=== PATIENT | female | born 1945 | race Caucasian/White ===

== ENCOUNTER 2020-07-30 16:23 | Outpatient (REF) | payer MEDICARE, SELFPAY ==
[2020-07-30 16:57] LABS: Glucose Urine UA NEG (NEG); Leukocyte Esterase Urine 2+ (NEG); Nitrite Urine NEG (NEG); Urine Blood NEG (NEG); Urine Ketones NEG (NEG); Urine Protein NEG (NEG-TRACE)
[2020-07-30 17:00] LABS: Appearance Urine CLEAR; Color Urine YELLOW
[2020-07-30 17:35] LABS: Bacteria Urine TRACE /LPF; Mucus Urine 1+ /LPF; RBC Urine 0 /HPF (0); Squamous Epithelial Cell Urine 2+ /LPF
== END 2020-07-30 16:24 | disposition home or self-care (01) ==
LOC: HO.LNP 16:23
PROVIDERS: Visit Provider Internal Medicine
DX: N30.90 Cystitis, unspecified without hematuria (principal)
CPT/HCPCS: 81001; 81003; 87086

== ENCOUNTER 2020-08-06 10:59 | Outpatient (REF) | payer MEDICARE, SELFPAY ==
[2020-08-06 11:34] LABS: Estimated Average Glucose 160 mg/dL; Hemoglobin A1c % 7.2 %
[2020-08-06 13:28] LABS: Cholesterol 257 mg/dL; Glucose Fasting 129 mg/dL (60-99); HDL Cholesterol 42 mg/dL; LDL Cholesterol Calculated 189 mg/dl; Triglycerides 130 mg/dL
[2020-08-06 13:58] LABS: Reflex LDLD? No
== END 2020-08-06 11:00 | disposition home or self-care (01) ==
LOC: HO.LNP 10:59
PROVIDERS: Visit Provider Internal Medicine
DX: E11.9 Type 2 diabetes mellitus without complications (principal); E78.00 Pure hypercholesterolemia, unspecified
CPT/HCPCS: 80061; 82947; 83036

== ENCOUNTER 2020-08-13 13:49 | Outpatient (REF) | payer MEDICARE, SELFPAY ==
[2020-08-13 14:11] LABS: Glucose Urine UA NEG (NEG); Leukocyte Esterase Urine 2+ (NEG); Nitrite Urine NEG (NEG); PH 6.5 (5.0-8.0); Specific Gravity - Urine <= 1.005 (1.005-1.025); Urine Blood NEG (NEG); Urine Ketones NEG (NEG); Urine Protein NEG (NEG-TRACE)
[2020-08-13 14:20] LABS: Appearance Urine HAZY; Color Urine YELLOW
[2020-08-13 14:35] LABS: Bacteria Urine TRACE /LPF; RBC Urine 0 /HPF (0); Squamous Epithelial Cell Urine 1+ /LPF
== END 2020-08-13 13:50 | disposition home or self-care (01) ==
LOC: HO.LNP 13:49
PROVIDERS: Visit Provider Internal Medicine
DX: Z87.440 Personal history of urinary (tract) infections (principal)
CPT/HCPCS: 81001; 87086

== ENCOUNTER 2021-04-29 10:29 | Outpatient (REF) | payer MEDICARE, SELFPAY ==
[2021-04-29 10:32] LABS: MANUAL DIFF FLAG NO
[2021-04-29 10:49] LABS: Basophils Percent Auto 0.4 % (0-2); Eosinophils Absolute Auto 0.2 X10*3/uL (0.0-0.4); Eosinophils Percent Auto 1.7 % (0-4); Hematocrit 40.1 % (37.0-47.0); Hemoglobin 12.8 g/dl (12.0-16.0); Imm Gran Abs Auto 0.03 X10*3/uL (0.00-0.03); Imm Gran Pct Auto 0.3 % (0.0-0.4); Lymphocytes Absolute Auto 2.4 X10*3/uL (1.2-4.9); Lymphocytes Percent Auto 25.7 % (20-40); Mean Corpuscular HGB Conc 31.9 g/dl (31.0-35.0); Mean Corpuscular Hemoglobin 29.5 pg (27.0-33.0); Mean Corpuscular Volume 92.4 fL (80.0-98.0); Monocytes Absolute Auto 0.8 X10*3/uL (0.1-1.2); Monocytes Percent Auto 8.8 % (2-11); Neutrophils Absolute Auto 5.8 x10*3/uL (2.0-8.3); Neutrophils Percent Auto 63.1 % (45-73); Platelet Count 301 X10*3/uL (160-400); Red Blood Count 4.34 X10*6/uL (4.20-5.50); White Blood Count 9.2 X10*3/uL (4.8-10.8)
[2021-04-29 10:52] LABS: Appearance Urine HAZY; Color Urine STRAW; Glucose Urine UA NEG (NEG); Leukocyte Esterase Urine TRACE (NEG); Nitrite Urine NEG (NEG); Urine Blood TRACE (NEG); Urine Ketones NEG (NEG); Urine Protein NEG (NEG-TRACE)
[2021-04-29 10:59] LABS: Estimated Average Glucose 163 mg/dL; Hemoglobin A1c % 7.3 %
[2021-04-29 11:04] LABS: Alanine Aminotransferase 10 U/L (0-31); Albumin Level 3.9 g/dL (3.5-5.0); Alkaline Phosphatase 94 U/L (39-117); Anion Gap 13 (12-20); Aspartate Amino Transferase 13 U/L (5-31); Bilirubin Total 0.5 mg/dL (0.0-1.0); Blood Urea Nitrogen 14 mg/dL (9-16); Calcium 9.5 mg/dL (8.4-10.2); Carbon Dioxide 28 mmol/L (22-29); Chloride 102 mmol/L (96-108); Cholesterol 261 mg/dL; Estimated Glomerular Filt Rate > 60; Glucose Fasting 123 mg/dL (60-99); HDL Cholesterol 42 mg/dL; LDL Cholesterol Calculated 190 mg/dl; Potassium 4.2 mmol/L (3.3-5.1); Sodium 139 mmol/L (135-145); Total Protein 7.3 g/dL (6.5-8.0); Triglycerides 148 mg/dL
[2021-04-29 11:06] LABS: Bacteria Urine TRACE /LPF; Squamous Epithelial Cell Urine 3+ /LPF; Urine Talc Crystals TRACE /LPF
[2021-04-29 11:22] LABS: Creatinine Urine 55.53 mg/dL
[2021-04-29 11:25] LABS: TSH reflex Free T4 6.56 uIU/mL (0.32-4.0); Vitamin D 25-OH Total 19.4 ng/mL (>30)
[2021-04-29 13:31] LABS: Free T4 (Free Thyroxine) 0.93 ng/dL (0.71-1.85)
== END 2021-04-29 10:30 | disposition home or self-care (01) ==
LOC: HO.LNP 10:29
PROVIDERS: Visit Provider Internal Medicine
DX: Z00.00 Encounter for general adult medical examination without abnormal findings (principal); E03.9 Hypothyroidism, unspecified; E11.9 Type 2 diabetes mellitus without complications; E78.00 Pure hypercholesterolemia, unspecified; E55.9 Vitamin D deficiency, unspecified
CPT/HCPCS: 80053; 80061; 81001; 82043; 82306; 83036; 84439; 84443; 85025

== ENCOUNTER 2021-11-06 14:34 | Outpatient (REF) | payer MEDICARE, SELFPAY ==
[2021-11-06 15:01] LABS: Glucose Fasting 134 mg/dL (60-99)
[2021-11-06 15:03] LABS: Estimated Average Glucose 151 mg/dL; Hemoglobin A1c % 6.9 %
[2021-11-06 15:28] LABS: Thyroid Stimulating Hormone 3.12 uIU/mL (0.32-4.0)
== END 2021-11-06 14:35 | disposition home or self-care (01) ==
LOC: HO.LNP 14:34
PROVIDERS: Visit Provider Internal Medicine
DX: Z13.89 Encounter for screening for other disorder (principal)
CPT/HCPCS: 82947; 83036; 84443

== ENCOUNTER 2022-05-05 10:59 | Outpatient (REF) | payer MEDICARE, SELFPAY ==
[2022-05-05 11:04] LABS: MANUAL DIFF FLAG NO
[2022-05-05 11:50] LABS: Basophils Absolute Auto 0.1 X10*3/uL (0.0-0.2); Basophils Percent Auto 0.9 % (0-2); Eosinophils Absolute Auto 0.3 X10*3/uL (0.0-0.4); Eosinophils Percent Auto 3.4 % (0-4); Hematocrit 42.9 % (37.0-47.0); Hemoglobin 13.7 g/dl (12.0-16.0); Imm Gran Abs Auto 0.02 X10*3/uL (0.00-0.03); Imm Gran Pct Auto 0.3 % (0.0-0.4); Lymphocytes Absolute Auto 2.7 X10*3/uL (1.2-4.9); Lymphocytes Percent Auto 34.3 % (20-40); Mean Corpuscular HGB Conc 31.9 g/dl (31.0-35.0); Mean Corpuscular Volume 87.7 fL (80.0-98.0); Monocytes Absolute Auto 0.7 X10*3/uL (0.1-1.2); Neutrophils Absolute Auto 4.1 x10*3/uL (2.0-8.3); Neutrophils Percent Auto 52.1 % (45-73); Platelet Count 346 X10*3/uL (160-400); Red Blood Count 4.89 X10*6/uL (4.20-5.50); Red Cell Distribution Width 13.6 % (11.0-16.0); White Blood Count 7.9 X10*3/uL (4.8-10.8)
[2022-05-05 11:53] LABS: Appearance Urine Cloudy; Color Urine Yellow; Glucose Urine UA Negative (Negative); Leukocyte Esterase Urine Large (3+) (Negative); Nitrite Urine Negative (Negative); Specific Gravity - Urine 1.015 (1.005-1.025); UMIC TRIGGER UACC YES; Urine Blood Trace (Negative); Urine Ketones Negative (Negative); Urine Protein Negative (Neg-Trace)
[2022-05-05 11:57] LABS: Bacteria Urine 4+ (None Seen); Hyaline Casts Urine 0-2 /LPF (0-2); Squamous Epithelial Cell Urine >20 /HPF (0-2); UACC Culture Trigger YES
[2022-05-05 12:06] LABS: Estimated Average Glucose 157 mg/dL; Hemoglobin A1c % 7.1 %
[2022-05-05 12:39] LABS: Creatinine Urine 101.76 mg/dL; Microalbum/Creatinine Ratio Ur 6.8 ug/mg cr
[2022-05-05 12:56] LABS: Alanine Aminotransferase 15 U/L (0-31); Alkaline Phosphatase 101 U/L (39-117); Anion Gap 12 (12-20); Aspartate Amino Transferase 17 U/L (5-31); Bilirubin Total 0.7 mg/dL (0.0-1.0); Blood Urea Nitrogen 13 mg/dL (9-16); Calcium 9.2 mg/dL (8.4-10.2); Carbon Dioxide 30 mmol/L (22-29); Chloride 106 mmol/L (96-108); Cholesterol 283 mg/dL; Estimated Glomerular Filt Rate > 60; Glucose Fasting 136 mg/dL (60-99); HDL Cholesterol 45 mg/dL; LDL Cholesterol Calculated 213 mg/dl; Potassium 4.9 mmol/L (3.3-5.1); Sodium 143 mmol/L (135-145); Total Protein 7.3 g/dL (6.5-8.0); Triglycerides 128 mg/dL
[2022-05-05 12:58] LABS: TSH reflex Free T4 3.63 uIU/mL (0.32-4.0); Vitamin D 25-OH Total 27.8 ng/mL (>30)
== END 2022-05-05 11:00 | disposition home or self-care (01) ==
LOC: HO.LNP 10:59
PROVIDERS: Visit Provider Internal Medicine
DX: Z00.00 Encounter for general adult medical examination without abnormal findings (principal); E03.9 Hypothyroidism, unspecified; E11.9 Type 2 diabetes mellitus without complications; E78.00 Pure hypercholesterolemia, unspecified; E55.9 Vitamin D deficiency, unspecified; R82.90 Unspecified abnormal findings in urine
CPT/HCPCS: 80053; 80061; 81001; 82043; 82306; 83036; 84443; 85025; 87086

== ENCOUNTER 2022-05-11 15:50 | Outpatient (REF) | payer MEDICARE, SELFPAY ==
[2022-05-11 16:04] LABS: Appearance Urine Cloudy; Color Urine Yellow; Glucose Urine UA Negative (Negative); Leukocyte Esterase Urine Large (3+) (Negative); Nitrite Urine Negative (Negative); PH 5.5 (5.0-9.0); Specific Gravity - Urine 1.015 (1.005-1.025); UMIC TRIGGER UA YES; Urine Blood Trace (Negative); Urine Ketones Negative (Negative); Urine Protein Negative (Neg-Trace)
[2022-05-11 16:09] LABS: Bacteria Urine 2+ (None Seen); WBC Urine 21-50 /HPF (0-5)
== END 2022-05-11 15:51 | disposition home or self-care (01) ==
LOC: HO.LNP 15:50
PROVIDERS: Visit Provider Internal Medicine
DX: R31.9 Hematuria, unspecified (principal)
CPT/HCPCS: 81001; 87086

== ENCOUNTER 2022-05-15 11:14 | Outpatient (REF) | payer MEDICARE, SELFPAY ==
[2022-05-15 11:38] LABS: Appearance Urine Cloudy; Color Urine Yellow; Glucose Urine UA Negative (Negative); Leukocyte Esterase Urine Large (3+) (Negative); Nitrite Urine Negative (Negative); PH 6.5 (5.0-9.0); Specific Gravity - Urine 1.015 (1.005-1.025); UMIC TRIGGER UACC YES; Urine Blood Negative (Negative); Urine Ketones Negative (Negative); Urine Protein Negative (Neg-Trace)
[2022-05-15 11:43] LABS: Bacteria Urine 1+ (None Seen); Hyaline Casts Urine 0-2 /LPF (0-2); RBC Urine 0-2 /HPF (0-2); UACC Culture Trigger YES
== END 2022-05-15 11:15 | disposition home or self-care (01) ==
LOC: HO.LNP 11:14
PROVIDERS: Visit Provider Internal Medicine
DX: N39.0 Urinary tract infection, site not specified (principal)
CPT/HCPCS: 81001; 87086

== ENCOUNTER 2023-05-04 11:20 | Outpatient (REF) | payer MEDICARE, SELFPAY ==
[2023-05-04 11:29] LABS: MANUAL DIFF FLAG NO
[2023-05-04 11:59] LABS: Basophils Absolute Auto 0.1 X10*3/uL (0.0-0.2); Basophils Percent Auto 0.8 % (0-2); Eosinophils Absolute Auto 0.3 X10*3/uL (0.0-0.4); Eosinophils Percent Auto 4.1 % (0-4); Hematocrit 41.2 % (37.0-47.0); Hemoglobin 13.3 g/dl (12.0-16.0); Imm Gran Abs Auto 0.03 X10*3/uL (0.00-0.03); Imm Gran Pct Auto 0.5 % (0.0-0.4); Lymphocytes Absolute Auto 2.2 X10*3/uL (1.2-4.9); Lymphocytes Percent Auto 35.8 % (20-40); Mean Corpuscular HGB Conc 32.3 g/dl (31.0-35.0); Mean Corpuscular Hemoglobin 28.7 pg (27.0-33.0); Mean Corpuscular Volume 88.8 fL (80.0-98.0); Monocytes Absolute Auto 0.6 X10*3/uL (0.1-1.2); Monocytes Percent Auto 9.1 % (2-11); Neutrophils Absolute Auto 3.1 x10*3/uL (2.0-8.3); Neutrophils Percent Auto 49.7 % (45-73); Platelet Count 306 X10*3/uL (160-400); Red Blood Count 4.64 X10*6/uL (4.20-5.50); Red Cell Distribution Width 14.3 % (11.0-16.0); White Blood Count 6.2 X10*3/uL (4.8-10.8)
[2023-05-04 12:02] LABS: Estimated Average Glucose 143 mg/dL; Hemoglobin A1c % 6.6 % (<6.0)
[2023-05-04 12:07] LABS: Appearance Urine Turbid; Color Urine Yellow; Glucose Urine UA Negative (Negative); Leukocyte Esterase Urine Large (3+) (Negative); Nitrite Urine Negative (Negative); PH 7.5 (5.0-9.0); Specific Gravity - Urine 1.015 (1.005-1.025); UMIC TRIGGER UACC YES; Urine Blood Trace (Negative); Urine Ketones Negative (Negative); Urine Protein Negative (Neg-Trace)
[2023-05-04 12:15] LABS: Alanine Aminotransferase 12 U/L (0-31); Albumin Level 3.9 g/dL (3.5-5.0); Alkaline Phosphatase 86 U/L (39-117); Anion Gap 11 (12-20); Aspartate Amino Transferase 17 U/L (5-31); Bilirubin Total 0.7 mg/dL (0.0-1.0); Blood Urea Nitrogen 14 mg/dL (9-16); Calcium 9.9 mg/dL (8.4-10.2); Carbon Dioxide 29 mmol/L (22-29); Chloride 104 mmol/L (96-108); Cholesterol 266 mg/dL (<200); Estimated Glomerular Filt Rate > 60; Glucose Fasting 125 mg/dL (60-99); HDL Cholesterol 44 mg/dL (>40); LDL Cholesterol Calculated 191 mg/dL (<100); Sodium 140 mmol/L (135-145); Total Protein 7.8 g/dL (6.5-8.0); Triglycerides 158 mg/dL (<150)
[2023-05-04 12:25] LABS: TSH reflex Free T4 1.84 uIU/mL (0.32-4.0); Vitamin D 25-OH Total 40.8 ng/mL (>30)
[2023-05-04 12:44] LABS: Creatinine Urine 76.51 mg/dL; Microalbum/Creatinine Ratio Ur 44.4 ug/mg cr (<30)
[2023-05-04 12:50] LABS: Bacteria Urine 1+ (None Seen); Hyaline Casts Urine 0-2 /LPF (0-2); Other Crystals Urine Present; Squamous Epithelial Cell Urine >20 /HPF (0-2); UACC Culture Trigger YES
== END 2023-05-04 11:21 | disposition home or self-care (01) ==
LOC: HO.LNP 11:20
PROVIDERS: Visit Provider Internal Medicine
DX: Z00.00 Encounter for general adult medical examination without abnormal findings (principal); E03.9 Hypothyroidism, unspecified; E11.9 Type 2 diabetes mellitus without complications; E78.00 Pure hypercholesterolemia, unspecified; E55.9 Vitamin D deficiency, unspecified; R82.90 Unspecified abnormal findings in urine
CPT/HCPCS: 80053; 80061; 81001; 82043; 82306; 82570; 83036; 84443; 85025; 87086

== ENCOUNTER 2023-11-05 11:36 | Outpatient (REF) | payer MEDICARE, SELFPAY ==
--- NOTE | ~2023-11-05 | XR_ITS ---
EXAMINATION: XR CERVICAL SPINE CLINICAL INFORMATION: Cervical neck pain COMPARISON: None available. TECHNIQUE: 4 views of the cervical spine were obtained. FINDINGS: C7 is not well evaluated on this exam. The cervical spine maintains normal alignment. Vertebral body heights are maintained. There is multilevel loss of intervertebral disc space with endplate degenerative changes. There are multiple large anterior osteophytes at C4-C5 and C5-C6. The paravertebral soft tissues are unremarkable. 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 Electronically signed by: Sue Guaman MD 11/06/2023 03:46 PM EDT
== END 2023-11-05 11:37 | disposition home or self-care (01) ==
LOC: HO.XRAY 11:36
PROVIDERS: PCP Internal Medicine; Visit Provider Internal Medicine
DX: M54.2 Cervicalgia (principal)
CPT/HCPCS: 72040

== ENCOUNTER 2024-05-08 10:23 | Outpatient (REF) | payer MEDICARE, SELFPAY ==
[2024-05-08 10:25] LABS: MANUAL DIFF FLAG NO
[2024-05-08 10:54] LABS: Basophils Absolute Auto 0.1 X10*3/uL (0.0-0.2); Basophils Percent Auto 1.1 % (0-2); Eosinophils Absolute Auto 0.3 X10*3/uL (0.0-0.4); Eosinophils Percent Auto 4.1 % (0-4); Hematocrit 41.2 % (37.0-47.0); Hemoglobin 13.2 g/dl (12.0-16.0); Imm Gran Abs Auto 0.02 X10*3/uL (0.00-0.03); Imm Gran Pct Auto 0.3 % (0.0-0.4); Lymphocytes Absolute Auto 2.4 X10*3/uL (1.2-4.9); Lymphocytes Percent Auto 36.5 % (20-40); Mean Corpuscular Hemoglobin 28.8 pg (27.0-33.0); Mean Platelet Volume 9.7 fL (9.4-12.3); Monocytes Absolute Auto 0.6 X10*3/uL (0.1-1.2); Monocytes Percent Auto 9.5 % (2-11); Neutrophils Absolute Auto 3.2 x10*3/uL (2.0-8.3); Neutrophils Percent Auto 48.5 % (45-73); Platelet Count 319 X10*3/uL (160-400); Red Blood Count 4.58 X10*6/uL (4.20-5.50); Red Cell Distribution Width 14.2 % (11.0-16.0); White Blood Count 6.6 X10*3/uL (4.8-10.8)
--- OUTSIDE RECORDS SUMMARY | 2024-05-08 11:43 | XMS_ITS ---
Author Organization Farhan Harding MD Address [address] [place], [place] [id number] Care Team Providers Care Reed Or Wind Instrument Repairer Name Role Phone Farhan Harding Primary Care Provider [phone] Results Component Value Reference Range Notes Complete Blood Count Auto Di ff (Not yet reviewed by provider) Interpretation: Performing Lab:[facility], [address] [place] [address] Notes/Report: White Blood Count 6.6 4.8-10.8 X10*3/uL Red Blood Count 4.58 4.20-5.50 X10*6/uL Hemoglobin 13.2 12.0-16.0 g/dl Hematocrit 41.2 37.0-47.0 % Mean Corpuscular Volume 90.0 80.0-98.0 fL Mean Corpuscular Hemoglobin 28.8 27.0-33.0 pg Mean Corpuscular HGB Conc 32.0 31.0-35.0 g/dl Red Cell Distribution Width 14.2 11.0-16.0 % Platelet Count 319 160-400 X10*3/uL Mean Platelet Volume 9.7 9.4-12.3 fL Neutrophils Percent Auto 48.5 45-73 % Imm Gran Pct Auto 0.3 0.0-0.4 % Lymphocytes Percent Auto 36.5 20-40 % Monocytes Percent Auto 9.5 2-11 % Eosinophils Percent Auto 4.1 0-4 % Basophils Percent Auto 1.1 0-2 % NRBC Pct Auto 0.0 0.0-0.2 /100WBC Neutrophils Absolute Auto 3.2 2.0-8.3 x10*3/u L Imm Gran Abs Auto 0.02 0.00-0.03 X10*3/uL Lymphocytes Absolute Auto 2.4 1.2-4.9 X10*3/u L Monocytes Absolute Auto 0.6 0.1-1.2 X10*3/uL Eosinophils Absolute Auto 0.3 0.0-0.4 X10*3/u L Basophils Absolute Auto 0.1 0.0-0.2 X10*3/uL NRBC Abs Auto 0.000 0.0-0.012 X10*3/uL REASON FOR VISIT yearly fasting labs Encounters Encounter Location Date Provider Diagnosis Farhan Harding MD [address] [place] [address] Drive [address] [place], [place] [phone] 05/08/2024 Farhan Harding Blood tests for rout ine general physical examination Z00.00 ; Acquired hypothyroidism E03.9 ; Pure hypercholesterolemia E78.00 and Vitamin D deficiency E55.9 Assessments Encounter Date Diagnosis (ICD Code) Assessment Notes Treatment Notes Treatment Clinical Notes Section Notes 05/08/2024 [address] tests for rout ine general physical examination (ICD-10 - Z00.00) 05/08/2024 Acquired hypothyroid ism (ICD-10 - E03.9) 05/08/2024 Pure hypercholesterolemia (ICD-10 - E78.00) 05/08/2024 Vitamin D deficiency (ICD-10 - E55.9) Plan Of Treatment Pending Test Test Name Order Date Complete Blood Count Auto Diff Comprehensive Rapelje. Panel Fast Lipid Panel 05/08/2024 Vitamin D 25-OH Total 05/08/2024 TSH reflex Free T4 05/08/2024 UA ClnCatch+Micro w/rflx Cult 05/08/2024 Next Appt Details Provider Name:Farhan menendez, 05/15/2024 09:30:00 AM, [address], [address], [place], [place], [id number], Progress Notes * Ayush JEROMEOB:1945 (78 yo F)Acc No.[id number]:05/08/2024 Progress Note Patient:?Pallavi JEROME Provider:?Farhan Harding MD :1945???Age:78 Y???Sex:Female D ate:05/08/2024 Address:[address] [place] [address] Subjective: * Chief Complaints: * ???1. Yearly fasting labs. * Medical History:? Objective: * Vitals:? Assessment: * Assessment: 1.?Blood tests for routine g eneral physical examination - Z00.00???2.?Acquired hypothyroidism - E03.9???3.?Pure hypercholesterolemia - E78.00???4.?Vitamin D deficiency - E55.9??? Plan: * Treatment: 2.?Acquired hypothyroidism?LAB: Complete Blood Count Auto Diff (Collection Date & Time - 05/08/2024 07:00 AM) ?LAB: Comprehensive Rapelje. Panel Fast ?LAB: Lipid Panel ?LAB: Vitamin D 25-OH Total ?LAB: TSH reflex Free T4 ?LAB: UA ClnCatch+Micro w/rflx Cult 3.?Pure hypercholesterolemia ?LAB: Complete Blood Count Auto Diff (Collection Date & Time - 05/08/2024 07:00 AM) ?LAB: Comprehensive Rapelje. Panel Fast ?LAB: Lipid Panel ?LAB: Vitamin D 25-OH Total ?LAB: TSH reflex Free T4 ?LAB: UA ClnCatch+Micro w/rflx Cult 4.?Vitamin D deficiency?LAB: Complete Blood Count Auto Diff (Collection Date & Time - 05/08/2024 07:00 AM) ?LAB: Comprehensive Rapelje. Panel Fast ?LAB: Lipid Panel ?LAB: Vitamin D 25-OH Total ?LAB: TSH reflex Free T4 ?LAB: UA ClnCatch+Micro w/rflx Cult * Procedure Codes:?03568 VENIP UNCT, ROUTINE* * * The named appointment provid er may or may not be the originator of this progress note, and it is not deemed complete until electronically signed by the appointment provider. Sign off status: Pending * Provider:?Farhan Harding MD Date:?0 05/08/2024 Generated for Rena barr/Lorenzo/Annetteitting on:?05/08/2024 11:43 AM EDT
--- OUTSIDE RECORDS SUMMARY | 2024-05-08 11:43 | XMS_ITS | Clinical Summary ---
Author Organization [facility] Address [address] [place] [address] Care Team Providers Care Farm Contractor Name Role Phone Unavailable Primary Care Provider Unavailabl e Allergies No known active allergies Medications Medication Sig Dispensed Refills Start Date End Date Status nirmatrelvir-riton avir (PAXLOVID EMERGENCY USE) therapy packIndications:CO VID-19 Take two 150 mg tablets of nirmatrelvir and one 100 mg tablet of ritonavir twice daily for 5 days. Dispense #20 Nirmatrelvir 150 mg Tablets and #10 Ritonavir 100 mg tablets. 30 tablet 10/13/2022 Active Social History Tobacco Use Types Packs/Day Years Used Date Smoking Tobacco: Never Assessed Sex and Gender Information Value Date Recorded Sex Assigned at Not on file Gender Identity Not on file Sexual Orientation Not on file Last Filed Vital Signs Vital Sign Reading Time Taken Comments Blood Pressure 125/79 03/03/2021 10:13 AM EST Pulse 64 03/03/2021 10:13 AM EST Temperature 36.3 ??C (97.4 ??F) 03/03/2021 10:[address] Respiratory Rate - - Oxygen Saturation 99% 03/03/2021 10:13 AM EST Inhaled Oxygen Concentration - - Weight - - Height - - Body Mass Index - - Plan of Treatment Health Maintenance Due Date Last Done Comments Hepatitis C Virus Screening 1945 DTaP/Tdap/Td Vaccines (1 - Tdap) 1964 Pneumococcal Vaccines 50+ (1 of 1 - PCV) 11/05/1995 Zoster (Shingles) Vaccine (1 of 2) 11/05/1995 DXA Bone Density (Females,Ag es 65 and older) 2010 RSV Vaccine 60 years and old er and Patients (1 - 1-dose 75+ series) 2020 Influenza Vaccine 09/30/2023 COVID-19 Vaccine (2023-2 5 season) 2023 Hepatitis B Vaccines Aged Out No long er eligible based on patient's age to complete this topic [address] [place] [address]
--- OUTSIDE RECORDS SUMMARY | 2024-05-08 11:43 | XMS_ITS ---
Author Organization Farhan Harding MD Address [address] [place], [place] [id number] Care Team Providers Care Clinical Rn Manager Name Role Phone Farhan Harding Primary Care Provider REASON FOR VISIT Additional fob to open the door Encounters Encounter Location Date Provider Diagnosis Farhan Harding MD [address] [place], [place] [phone] 06/08/2023 Farhan Harding Plan Of Treatment Next Appt Details Provider Name:Farhan Lazaro ier, 05/15/2024 09:30:00 AM, [address] [facility], [address], [place], [place], [phone], Progress Notes * Ayush JEROMEOB:1945 (77 yo F)Acc No.[id number]:06/08/2023 Patient:?Pallavi Jerome :1945???Age:77 Y???Sex:Female Address:[address] [facility] [address], [place] [address] * true * Date:? Generated for Printi ng/Facarmelog/eTransmitting on:?05/08/2024 11:42 AM EDT
--- OUTSIDE RECORDS SUMMARY | 2024-05-08 11:43 | XMS_ITS | Clinical Summary ---
Author Organization [facility] it Address [address] [place] [address] Care Team Providers Care Occupational Therapist Name Role Phone Farhan Harding MD Primary Care Provider [phone] Social History Tobacco Use Types Packs/Day Years Used Date Smoking Tobacco: Never Assessed Comments Unknown Sex and Gender Information Value Date Recorded Sex Assigned at Not on file Legal Sex Female 9:30 AM EST Gender Identity Not on file Sexual Orientation Not on file Plan of Treatment Health Maintenance Due Date Last Done Comments DTaP,Tdap,and Td Vaccines (1 - Tdap) 1964 Pneumococcal Vaccine: 50+ Ye ars (1 of 1 - PCV) 11/05/1995 Zoster Vaccines (1 of 2) 11/05/1995 RSV Immunization Patients 60 + Years Old (1 - 1-dose 75+ series) 2020 Depression Screening 01/26/2022 Falls Risk Assessment 01/26/2022 Hepatitis C Screening 01/26/2022 Osteoporosis Screening (Bone Density Screening) 01/26/2022 Social Influencers of Health Screening 01/26/2022 COVID-19 Vaccine ( - 2023-2 5 season) 2023 Influenza Vaccine (#1) 2023 HIB Vaccines Aged Out No longer eligi ble based on patient's age to complete this topic HPV Vaccines Aged Out No longer eligi ble based on patient's age to complete this topic Hepatitis A Vaccines Aged Out No long er eligible based on patient's age to complete this topic Hepatitis B Vaccines Aged Out No long er eligible based on patient's age to complete this topic IPV Vaccines Aged Out No longer eligi ble based on patient's age to complete this topic MMR Vaccines Aged Out No longer eligi ble based on patient's age to complete this topic Meningococcal ACWY Vaccine Aged Out N o longer eligible based on patient's age to complete this topic Meningococcal B Vacine Aged Out No lo nger eligible based on patient's age to complete this topic RSV Immunization Patients Un piotr 20 months Aged Out No longer eligible b ased on patient's age to complete this topic Varicella Vaccines Aged Out No longer eligible based on patient's age to complete this topic Care Teams Occupational Therapist Relationship Specialty Start Date End Date Farhan Harding MD PCP - General Internal Medicine 12/11/11
--- OUTSIDE RECORDS SUMMARY | 2024-05-08 11:43 | XMS_ITS ---
Author Organization Farhan Harding MD Address [address] [place], [place] [id number] Care Team Providers Care Picture Engraver Name Role Phone Farhan Harding Primary Care Provider [phone] Allergies Allergen (clinical drug ingredient) Drug/Non Drug Allergy documented on EMR Reaction Allergy Type Onset Date Status Simvastatin myalgia Drug Allergy Activ e pravastatin Pravachol myalgia Drug Allergy Activ e Substance with sulfonamide structure and antibacterial mechanism of action (substance) sulfa (uncoded) hives Allergy Active Results Component Value Reference Range Notes Hemoglobin A1c Reviewed date:11/05/2023 11:16:48 AM Interpretation: Performing Lab: Notes/Report: Hemoglobin A1c 7.1 Glucose, finger stick Reviewed date:11/05/2023 11:09:58 AM Interpretation: Performing Lab: Notes/Report: Value 205 XR cervical spine 2V Reviewed date:11/08/2023 09:58:49 AM Interpretation:copy mailed to patient Performing Lab: Notes/Report: [facility] [address] [place] [address] XRay Report Signed Patient: Plalavi Jerome MR#: [id number] : 1945 Acct:[id number] Age/Sex: 78 / F ADM Date: 11/05/23 Loc: HO.XRAY Attending Dr: Farhan Harding MD Ordering Physician: Farhan Harding MD Date of Service: 11/05/23 Procedure(s): XR cervical spine 2V Accession Number(s): [id number] cc: Farhan Harding MD EXAMINATION: XR CERVICAL SPINE CLINICAL INFORMATION: Cervical neck pain COMPARISON: None available. TECHNIQUE: 4 views of the cervical spine were obtained. FINDINGS: C7 is not well evaluated on this exam. The cervical spine maintains normal alignment. Vertebral body heights are maintained. There is multilevel loss of intervertebral disc space with endplate degenerative changes. There are multiple large anterior osteophytes at C4-C5 and C5-C6. The paravertebral soft tissues are unremarkable. 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 Electronically signed by: Sue Guaman MD 11/06/2023 03:46 PM EDT RP Dictated By: Sue Guaman MD Signed By: <Electronically signed by Sue Guaman MD in OV> 11/06/23 1546 DD/ 1205 TD/TT: 11/05/23 1212 Tax Investigator: GERMAINE [place] [id number] XRay Report Signed Patient: Beatrice Jerome MR#: [id number] : 1945 Acct:[id number] Age/Sex: 78 / F ADM Date: 11/05/23 Loc: HO.XRAY Attending Dr: Farhan Harding MD Ordering Physician: Farhan Harding MD Date of Service: 11/05/23 Procedure(s): XR cer vical spine 2V Accession Number(s): [id number] cc: Farhan Harding MD EXAMINATION: XR CERVICAL SPINE CLINICAL INFORMATION: Cervical neck pain COMPARISON: None available. TECHNIQUE: 4 views of the cervi kell spine were obtained. FINDINGS: C7 is not well evalu ated on this exam. The cervical spine maintains normal alignment. Ve rtebral body heights are maintained. There is multilevel loss of intervertebral disc space with endplate degenerative changes. There are m ultiple large anterior osteophytes at C4-C5 and C5-C6. The paraverte bral soft tissues are unremarkable. X R/XR cervical spine 2V IMPRESSION: Moderate degenerativ e disease of the cervical spine. Electronically flavia d by: Sue Guaman MD 11/06/2023 03:46 PM EDT Dictated By: Sue Clemente MD Signed By: <Hussain tong signed by Sue Guaman MD in OV> 11/06/23 1546 DD/ 1205 TD/TT: 11/05/23 1212 Tax Investigator: GERMAINE REASON FOR VISIT 6 month Medications Medication SIG (Take, Route, Frequency, Duration) Notes Start Date End Date Status Lotrisone 1-0.05 % 1 application to affected area Externally Twice a day for 30 days 05/06/2015 Not-Taking Vitamin D 1000 UNIT 1 tablet Orally Once a day for 90 days Active Levothyroxine Sodium 125 MCG TAKE 1 TABLET BY MOUTH ONCE DAILY IN THE MORNING ON AN EMPTY STOMACH for 100 Active Clotrimazole 1 % APPLY TO AFFECTED AREA(S) TOPICALLY TWICE DAILY for 90 Active metFORMIN HCl 500 MG TAKE 1 TABLET BY [facility] TWICE DAILY WITH MEALS for 100 Active Omeprazole 20 MG 1 capsule 30 minutes before morning meal Orally Once a day for 30 day(s) 05/26/2019 Not-Taking Vital Signs Blood pressure systolic 138 mm Hg 11/05/19 24 Blood pressure diastolic 74 mm Hg 024 Height 62 in 11/05/2023 Weight 218 lbs 11/05/2023 BMI 39.87 kg/m2 11/05/2023 weight is down 10 pounds sin 05-11-23 Encounters Encounter Location Date Provider Diagnosis Farhan Harding MD [address] [place] [address] [place] [phone] 11/05/2023 Farhan Harding Type 2 diabetes mellitus without complication E11.9 and Cervicalgia M54.2 Assessments Encounter Date Diagnosis (ICD Code) Assessment Notes Treatment Notes Treatment Clinical Notes Section Notes 11/05/2023 Type 2 diabetes mellitus without complication (ICD-10 - E11.9) has lost 7 pounds 11/05/2023 Cervicalgia (ICD-10 - M54.2) order given to patient Plan Of Treatment Treatment Notes Assessment Notes Type 2 diabetes mellitus without complic ation has lost 7 pounds Cervicalgia order given to alexandrea villalta Next Appt Details Provider Name:Farhan Vignesh Lazaro ier, 05/15/2024 09:30:00 AM, [address], [address], [place], [place], [phone], Progress Notes * Ayush JEROMEOB:1945 (78 yo F)Acc No.[id number]:11/05/2023 Progress Notes Patient:?Pallavi Jerome Provider:?Farhan Harding MD :1945???Age:78 Y???Sex:Female D ate:11/05/2023 Address:[address] [place], [place] [phone] Subjective: * Chief Complaints: * ???6 month * HPI: ???Symptom(s):? patient is a 78 yo female here for 6 month follow up visit for diabetes. doesn't want a machine. has neck pack. * ROS:?General/Constitutional:?Denies?Chills.?Denies?Fatigue.?Denies?Fever.?Denies?Headache.?ENT:?Patient denies?decreased sense of smell , any loss of taste , sore throat.?Denies?Sore throat.?Endocrine:?Denies?Dizziness.?Denies?Excessive sweating.?Denies?Excessive thirst.?Denies?Frequent urination.?Respiratory:?Denies?Cough.?Denies?Shortness of breath at rest.?Denies?Shortness of breath with exertion.?Gastrointestinal:?Denies?Diarrhea.?Denies?Nausea.?Musculoskeletal:?Patient denies?muscle aches.?Peripheral Vascular:?Patient denies?red and blue toes.? * Medical History:? * Surgical History:? * Hospitalization/Major Diagno stic Procedure:? * Medications:?TakingVitamin D 1000 UNIT Tablet 1 tablet Orally Once a dayLevothyroxine Sodium 125 MCG Tablet TAKE 1 TABLET BY MOUTH ONCE DAILY IN THE MORNING ON AN EMPTY STOMACH Clotrimazole 1 % Cream APPLY TO AFFECTED AREA(S) TOPICALLY TWICE DAILY metFORMIN HCl 500 MG Tablet TAKE 1 TABLET BY MOUTH TWICE DAILY WITH MEALS Taking Vitamin D 1000 UNIT Tablet 1 tablet Orally Once a dayTaking Levothyroxine Sodium 125 MCG Tablet TAKE 1 TABLET BY MOUTH ONCE DAILY IN THE MORNING ON AN EMPTY STOMACH Taking Clotrimazole 1 % Cream APPLY TO AFFECTED AREA(S) TOPICALLY TWICE DAILY Taking metFORMIN HCl 500 MG Tablet TAKE 1 TABLET BY MOUTH TWICE DAILY WITH MEALS Not-Taking/PRNOmeprazole 20 MG Capsule Delayed Release 1 capsule 30 minutes before morning meal Orally Once a dayLotrisone 1-0.05 % Cream 1 application to affected area Externally Twice a dayMedication List reviewed and reconciled with the patientNot-Taking/PRN Omeprazole 20 MG Capsule Delayed Release 1 capsule 30 minutes before morning meal Orally Once a dayNot-Taking/PRN Lotrisone 1-0.05 % Cream 1 application to affected area Externally Twice a dayMedication List reviewed and reconciled with the patient * Allergies:?sulfa: hivesSimva statin: myalgiaPravachol: myalgiayes[Allergies Verified] Objective: * Vitals:?Ht: 62, Wt:218, BMI: 39.87, BP:138/74 weight is down 10 pounds since 05-11-23. * Examination: ???General Examination: ?GENERAL APPEARANCE:? alert, well hydrated, in no distress .?HEAD:? normocephalic.?SKIN:?good turgor, abnormal rt palm with a 2 mm blood blister.?HEART:? regular rate and rhythm, no murmurs, rubs, gallops.? Assessment: * Assessment: 1.?Type 2 diabetes mellitus without complication - E11.9 (Primary)?2.?Cervicalgia - M54.2? Plan: * Treatment: ? Value Reference Range ?Hemoglobin A1c 7.1 * Lynne Chase 4 11:16:47 AM EDT > ?LAB: Glucose, finger stick* ? Value Reference Range ?Value 205 * Lynne Chase 4 11:09:57 AM EDT > Notes: has lost 7 pounds??2.?Cervicalgia?Imaging: XR cervical spine 2V* Farhan Harding 11/07/2023 12:29:14 PM EDT > send copy of this to patientPeKate lamb 11/08/2023 09:57:54 AM EDT > copy mailed to patient. Notes: order given to patient?? * Procedure Codes:?59837 ASSAY , GLUCOSE, BLOOD QUANT, Modifiers: QW 30877 GLYCATED HEMOGLOBIN TEST, Modifiers: QW * * Sign off status: Completed true * Provider:?Farhan Harding MD Date:?0 11/05/2023 Generated for Rena barr/Lorenzo/eTransmitting on:?05/08/2024 11:42 AM EDT History and Physical Notes * HPI (History of Present Illness) Category Sub-Category Detail Notes Category Not es Symptom(s) patient is a 78 yo female here for 6 month follow up visit for diabetes. doesn't want a machine. has neck pack Examination Category Sub-Category Detail Notes Category Not es General Examination GENERAL APPEARANCE: alert, w ell hydrated, in no distress HEAD: normocephalic HEART: regular rate and rhy thm, no murmurs, rubs, gallops SKIN: good turgor, abnorma l rt palm with a 2 mm blood blister
[2024-05-08 11:55] LABS: Alanine Aminotransferase 16 U/L (0-31); Albumin Level 3.9 g/dL (3.5-5.0); Alkaline Phosphatase 81 U/L (39-117); Anion Gap 12 (12-20); Aspartate Amino Transferase 21 U/L (5-31); Bilirubin Total 0.4 mg/dL (0.0-1.0); Blood Urea Nitrogen 12 mg/dL (9-16); Calcium 9.5 mg/dL (8.4-10.2); Carbon Dioxide 29 mmol/L (22-29); Chloride 106 mmol/L (96-108); Cholesterol 253 mg/dL (<200); Estimated Glomerular Filt Rate > 60; Glucose Fasting 132 mg/dL (60-99); HDL Cholesterol 44 mg/dL (>40); LDL Cholesterol Calculated 181 mg/dL (<100); Potassium 4.5 mmol/L (3.3-5.1); Sodium 142 mmol/L (135-145); Triglycerides 142 mg/dL (<150)
[2024-05-08 11:57] LABS: TSH reflex Free T4 2.75 uIU/mL (0.32-4.0); Vitamin D 25-OH Total 35.7 ng/mL (>30)
== END 2024-05-08 10:24 | disposition home or self-care (01) ==
LOC: HO.LNP 10:23
PROVIDERS: Visit Provider Internal Medicine
DX: Z00.00 Encounter for general adult medical examination without abnormal findings (principal); E03.9 Hypothyroidism, unspecified; E78.00 Pure hypercholesterolemia, unspecified; E55.9 Vitamin D deficiency, unspecified
CPT/HCPCS: 80053; 80061; 82306; 84443; 85025

== ENCOUNTER 2024-05-15 10:58 | Outpatient (REF) | payer MEDICARE, SELFPAY ==
[2024-05-15 11:11] LABS: Bacteria Urine None Seen (None Seen); Hyaline Casts Urine 0-2 /LPF (0-2); RBC Urine 0-2 /HPF (0-2); Squamous Epithelial Cell Urine 0-2 /HPF (0-2); WBC Urine 0-5 /HPF (0-5)
[2024-05-15 11:12] LABS: Appearance Urine Clear; Color Urine Yellow; Glucose Urine UA Negative (Negative); Leukocyte Esterase Urine Small (1+) (Negative); Nitrite Urine Negative (Negative); Specific Gravity - Urine 1.015 (1.005-1.025); UACC Culture Trigger YES; UMIC TRIGGER UACC YES; Urine Blood Negative (Negative); Urine Ketones Negative (Negative); Urine Protein Negative (Neg-Trace)
[2024-05-15 12:10] LABS: Creatinine Urine 70.69 mg/dL; Microalbumin Urine < 5.0 mg/L
== END 2024-05-15 10:59 | disposition home or self-care (01) ==
LOC: HO.LNP 10:58
PROVIDERS: Visit Provider Internal Medicine
DX: E11.9 Type 2 diabetes mellitus without complications (principal); E78.00 Pure hypercholesterolemia, unspecified; R82.90 Unspecified abnormal findings in urine
CPT/HCPCS: 81001; 82043; 82570; 87086